=== PATIENT | male | born 1975 | race Caucasian/White ===

== ENCOUNTER 2016-11-12 18:48 | Observation (INO) | payer BC ==
[~2016-11-12] VITALS: Ht 180.3 cm; Wt 75.0 kg
[2016-11-12 18:51] VITALS: BP 138/79; PULSE 88; RESP 18; TEMP 98.3; O2SAT 99
[2016-11-12 21:00] VITALS: BP 147/90; PULSE 55; RESP 17; O2SAT 97
[2016-11-12 21:10] VITALS: O2SAT 97
[2016-11-12] MEDS ORDERED: MORPHINE SULFATE 4 MG/ML INJ IV PUSH ONE (21:15)
[2016-11-12] MEDS ORDERED: ONDANSETRON HCL 4 MG/2 ML VIAL IV PUSH ONE (21:15)
[2016-11-12] MEDS ORDERED: SODIUM CHLORIDE 0.9% FLUSH 10 ML FLUSH IVF PRN (21:15)
--- NOTE | 2016-11-12 21:15 | PD ---
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 Mayen. Patient presents with history of reaction to Coumadin in the past as well as Xeralto, who currently is not on any anticoagulation therapy. PFSH Past Medical History Diminished Hearing: No Deep Vein Thrombosis: Yes (H/O) Medical other: Yes (factor 5, celiac disease) Past Surgical History Abdominal Surgery: Yes (Abd hernia repair) Other Surgery: Yes (R foot/vein ablation right leg) Social History Alcohol Use: Yes (Beer daily) Tobacco Use: No (Quit 2007) Substance Use: Yes (Marijuana on OCC) Allergies-Medications (Allergen,Severity, Reaction): Coded Allergies: ibuprofen (Unverified Allergy, Mild, Rash, 11/12/16) penicillin G (Unverified Allergy, Mild, Unknown, 11/12/16) warfarin (Verified Allergy, Unknown, 11/12/16) Reported Meds & Prescriptions Reported Meds & Active Scripts Active No Active Prescriptions or Reported Medications Review of Systems Except as stated in HPI: all other systems reviewed are Neg General / Constitutional: No: Fever Eyes: No: Visual changes HENT: No: Headaches Cardiovascular: No: Chest Pain or Discomfort Respiratory: No: Shortness of Breath Gastrointestinal: No: Abdominal Pain Genitourinary: No: Dysuria Musculoskeletal: Positive: Limited ROM, Pain (see history present illness.) Skin: Positive Lesions (see history present illness.), No Rash Neurologic: No: Weakness Psychiatric: No: Depression Endocrine: No: Polydipsia Hematologic/Lymphatic: No: Easy Bruising Physical Exam Narrative GENERAL: Patient appears in [id number] distress. SKIN: Warm and dry. No color. Normal turgor. Patient has chronic ulcerative to the right lower leg above the foot, to the lower inner chu with no active signs of cellulitis. There is some small amount of serous drainage. Capillary refill is normal in the toes. HEAD: Atraumatic. Normocephalic. EYES: Pupils equal and round. No scleral icterus. No injection or drainage. ENT: No nasal bleeding or discharge. Mucous membranes pink and moist. Anxious clear. Airway is patent. NECK: Trachea midline. No JVD. CARDIOVASCULAR: Regular rate and rhythm. No murmurs gallops or rubs appreciated. Patient has 1+ pedal pulses bilaterally. RESPIRATORY: No accessory muscle use. Clear to auscultation. Breath sounds equal bilaterally. GASTROINTESTINAL: Abdomen soft, non-tender, nondistended. Hepatic and splenic margins not palpable. MUSCULOSKELETAL: Extremities without clubbing, cyanosis, or edema. No obvious deformities. Patient has mild swelling to the right lower extremity with fairly significant tenderness with palpation as well as positive Homans sign on the right. No weakness is appreciated. NEUROLOGICAL: Awake and alert. No obvious cranial nerve deficits. Motor grossly within normal limits. Five out of 5 muscle strength in the arms and legs. Normal speech. PSYCHIATRIC: Appropriate mood and affect; insight and judgment normal. Data Data Last Documented VS Vital Signs Date Time Temp Pulse Resp B/P (MAP) Pulse Ox O2 Delivery O2 Flow Rate FiO2 11/12/16 21:10 97 Room Air 11/12/16 21:00 55 17 11/12/16 18:51 98.3 Orders Orders Ckmb (Isoenzyme) Profile (11/12/16 21:04) Complete Blood Count With Diff (11/12/16 21:04) Comprehensive Metabolic Panel (11/12/16 21:04) Prothrombin Time / Inr (Pt) (11/12/16 21:04) Act Partial Throm Time (Ptt) (11/12/16 21:04) Chest, Single Ap (11/12/16 21:04) Ecg Monitoring (11/12/16 21:04) Iv Access Insert/Monitor (11/12/16 21:04) Oximetry (11/12/16 21:04) Sodium Chloride 0.9% Flush (Ns Flush) (11/12/16 21:15) Us Leg Venous Doppler (11/12/16 21:04) Morphine Inj (Morphine Inj) (11/12/16 21:15) Ondansetron Inj (Zofran Inj) (11/12/16 21:15) Labs Laboratory Tests Test 11/12/16 21:15 White Blood Count 7.1 TH/MM3 Red Blood Count 4.39 MIL/MM3 Hemoglobin 13.4 GM/DL Hematocrit 39.5 % Mean Corpuscular Volume 90.1 FL Mean Corpuscular Hemoglobin 30.6 PG Mean Corpuscular Hemoglobin Concent 34.0 % Red Cell Distribution Width 12.6 % Platelet Count 286 TH/MM3 Mean Platelet Volume 8.3 FL Neutrophils (%) (Auto) 60.0 % Lymphocytes (%) (Auto) 26.3 % Monocytes (%) (Auto) 8.9 % Eosinophils (%) (Auto) 3.9 % Basophils (%) (Auto) 0.9 % Neutrophils # (Auto) 4.2 TH/MM3 Lymphocytes # (Auto) 1.9 TH/MM3 Monocytes # (Auto) 0.6 TH/MM3 Eosinophils # (Auto) 0.3 TH/MM3 Basophils # (Auto) 0.1 TH/MM3 CBC Comment DIFF FINAL Differential Comment Prothrombin Time 11.9 SEC Prothromb Time International Ratio 1.1 RATIO Activated Partial Thromboplast Time 27.4 SEC Blood Urea Nitrogen 10 MG/DL Creatinine 0.98 MG/DL Random Glucose 91 MG/DL Total Protein 7.9 GM/DL Albumin 4.0 GM/DL Calcium Level 9.1 MG/DL Alkaline Phosphatase 55 U/L Aspartate Amino Transf (AST/SGOT) 17 U/L Alanine Aminotransferase (ALT/SGPT) 22 U/L Total Bilirubin 0.4 MG/DL Sodium Level 140 MEQ/L Potassium Level 3.8 MEQ/L Chloride Level 106 MEQ/L Carbon Dioxide Level 28.7 MEQ/L Anion Gap 5 MEQ/L Estimat Glomerular Filtration Rate 84 ML/MIN Total Creatine Kinase 83 U/L [facility] Medical Decision Making Medical Screen Exam Complete: Yes Emergency Medical Condition: Yes Medical Record Reviewed: Yes Differential Diagnosis Chronic right lower extremity pain. Chronic right lower extremity nonhealing wounds. Factor V disorder. Possible DVT on the right. Hypercoagulation disorder. Narrative Course Patient is in pain but medically stable at time of exam. Labs ordered including CBC, CMP, coagulation studies ordered. Chest x-ray is ordered and shows no acute process. IV access is obtained patient is given 4 mg Zofran IV as well as 4 mg morphine IV. Labs showed no significant white count. CMP is unremarkable. Coagulation studies show PT of 11.9, INR 1.1, APTT is 27.4. 2300 hrs. Ultrasound is still pending. Patient is discussed with Dr. Couch who assumes care. Final disposition will be determined by Dr. Couch. Scripts No Active Prescriptions or Reported Meds Condition: Stable Don Tyler Nov 12, 2016 21:15
[2016-11-12 21:37] LABS: AUTOMATED NEUTROPHIL # 4.2 TH/MM3 (1.8-7.7); BASOPHIL # 0.1 TH/MM3 (0-0.2); BASOPHIL % 0.9 % (0.0-2.0); EOSINOPHIL # 0.3 TH/MM3 (0-0.4); EOSINOPHIL % 3.9 % (0.0-4.0); HEMATOCRIT 39.5 % (39.0-51.0); HEMO FLAGS DIFF FINAL; LYMPH % 26.3 % (9.0-44.0); LYMPHOCYTE # 1.9 TH/MM3 (1.0-4.8); MEAN CELL VOLUME 90.1 FL (80.0-100.0); MEAN CORPUSCULAR HEMOGLOBIN 30.6 PG (27.0-34.0); MONO % 8.9 % (0.0-8.0); PLATELET COUNT 286 TH/MM3 (150-450); RED BLOOD COUNT 4.39 MIL/MM3 (4.50-5.90); RED CELL DISTRIBUTION WIDTH 12.6 % (11.6-17.2); WHITE BLOOD COUNT 7.1 TH/MM3 (4.0-11.0)
[2016-11-12 21:47] LABS: APTT (PATIENT) 27.4 SEC (24.3-30.1); INTERNATIONAL NORMALIZED RATIO 1.1 RATIO; PROTHROMBIN TIME - PATIENT 11.9 SEC (9.8-11.6)
[2016-11-12 21:52] LABS: ANION GAP 5 MEQ/L (5-15); AST (GOT) 17 U/L (15-37); BICARBONATE 28.7 MEQ/L (21.0-32.0); BLOOD UREA NITROGEN 10 MG/DL (7-18); CHLORIDE 106 MEQ/L (98-107); GLOMERULAR FILTRATION RATE 84 ML/MIN (>89); POTASSIUM 3.8 MEQ/L (3.5-5.1); SODIUM (NA) 140 MEQ/L (136-145)
[2016-11-12 21:53] LABS: ALT (GPT) 22 U/L (12-78)
[2016-11-12 21:55] LABS: ALKALINE PHOSPHATASE 55 U/L (45-117); TOTAL BILIRUBIN ADULT 0.4 MG/DL (0.2-1.0)
[2016-11-12 21:57] LABS: CREATINE KINASE 83 U/L (39-308)
--- NOTE | 2016-11-12 21:58 | RADRPT ---
EXAM DATE/TIME: 11/12/2016 21:27 [facility] COMPARISON: No previous studies available for comparison. INDICATIONS : Chest pain. MEDICAL HISTORY : DVT. SURGICAL HISTORY : None. ENCOUNTER: Initial ACUITY: 1 day PAIN SCORE: 0/10 LOCATION: Bilateral chest FINDINGS: A single view of the chest demonstrates the lungs to be symmetrically aerated without evidence of mas s, infiltrate or effusion. The cardiomediastinal contours are unremarkable. Osseous structures are intact. CONCLUSION: No evidence of acute cardiopulmonary disease. Gilberto Veras MD on November 12, 2016 at 21:56 Board Certified Radiologist. This report was verified electronically.
[2016-11-12 23:00] VITALS: BP 111/72; PULSE 48; RESP 17; O2SAT 97
--- NOTE | 2016-11-12 23:02 | RADRPT ---
EXAM DATE/TIME: 11/12/2016 22:15 [facility] COMPARISON: US LEG RIGHT VENOUS DOPPLER, April 13, 2014, 8:04. INDICATIONS : Right leg pain. MEDICAL HISTORY : Deep venous thrombosis. Celiac disease. Venous stasis ulcers. Anticoagulant therapy. Factor 5 de ficiency. SURGICAL HISTORY : Hernia repair. Right foot surgery. Right leg vein ablation. ENCOUNTER: Initial ACUITY: >1 year PAIN SCORE: 5/10 LOCATION: Right leg. TECHNIQUE: Venous ultrasound of the leg was performed from the inguinal ligament to the proximal calf. Real-jolie e, color Doppler and spectral tracing, compression and augmentation techniques were used. FINDINGS: There is chronic appearing, nonocclusive thrombosis of the right lower extremity extending from the p roximal superficial femoral vein and extending into the popliteal vein. Other venous tributaries of t he right lower extremity are patent. There are right inguinal lymph nodes that measure up to 4.4 x 2.6 x 1.2 cm. CONCLUSION: 1. New but probably nonacute thrombosis of the right superficial femoral vein and popliteal vein. 2. Right inguinal adenopathy. Gilberto Veras MD on November 12, 2016 at 22:58 Board Certified Radiologist. This report was verified electronically.
--- NOTE | 2016-11-12 23:20 | PD ---
Data Data Last Documented VS Vital Signs Date Time Temp Pulse Resp B/P (MAP) Pulse Ox O2 Delivery O2 Flow Rate FiO2 11/12/16 23:00 48 17 111/72 (85) 97 Room Air 11/12/16 18:51 98.3 Orders Orders Ckmb (Isoenzyme) Profile (11/12/16 21:04) Complete Blood Count With Diff (11/12/16 21:04) Comprehensive Metabolic Panel (11/12/16 21:04) Prothrombin Time / Inr (Pt) (11/12/16 21:04) Act Partial Throm Time (Ptt) (11/12/16 21:04) Chest, Single Ap (11/12/16 21:04) Ecg Monitoring (11/12/16 21:04) Iv Access Insert/Monitor (11/12/16 21:04) Oximetry (11/12/16 21:04) Sodium Chloride 0.9% Flush (Ns Flush) (11/12/16 21:15) Us Leg Venous Doppler (11/12/16 21:04) Morphine Inj (Morphine Inj) (11/12/16 21:15) Ondansetron Inj (Zofran Inj) (11/12/16 21:15) Enoxaparin Inj (Lovenox Inj) (11/13/16 01:15) Admit Order (Ed Use Only) (11/13/16 01:12) Consult Hematology (11/13/16 ) Labs Laboratory Tests Test 11/12/16 21:15 White Blood Count 7.1 TH/MM3 Red Blood Count 4.39 MIL/MM3 Hemoglobin 13.4 GM/DL Hematocrit 39.5 % Mean Corpuscular Volume 90.1 FL Mean Corpuscular Hemoglobin 30.6 PG Mean Corpuscular Hemoglobin Concent 34.0 % Red Cell Distribution Width 12.6 % Platelet Count 286 TH/MM3 Mean Platelet Volume 8.3 FL Neutrophils (%) (Auto) 60.0 % Lymphocytes (%) (Auto) 26.3 % Monocytes (%) (Auto) 8.9 % Eosinophils (%) (Auto) 3.9 % Basophils (%) (Auto) 0.9 % Neutrophils # (Auto) 4.2 TH/MM3 Lymphocytes # (Auto) 1.9 TH/MM3 Monocytes # (Auto) 0.6 TH/MM3 Eosinophils # (Auto) 0.3 TH/MM3 Basophils # (Auto) 0.1 TH/MM3 CBC Comment DIFF FINAL Differential Comment Prothrombin Time 11.9 SEC Prothromb Time International Ratio 1.1 RATIO Activated Partial Thromboplast Time 27.4 SEC Blood Urea Nitrogen 10 MG/DL Creatinine 0.98 MG/DL Random Glucose 91 MG/DL Total Protein 7.9 GM/DL Albumin 4.0 GM/DL Calcium Level 9.1 MG/DL Alkaline Phosphatase 55 U/L Aspartate Amino Transf (AST/SGOT) 17 U/L Alanine Aminotransferase (ALT/SGPT) 22 U/L Total Bilirubin 0.4 MG/DL Sodium Level 140 MEQ/L Potassium Level 3.8 MEQ/L Chloride Level 106 MEQ/L Carbon Dioxide Level 28.7 MEQ/L Anion Gap 5 MEQ/L Estimat Glomerular Filtration Rate 84 ML/MIN Total Creatine Kinase 83 U/L [facility] Medical Record Reviewed: Yes Supervised Visit with ROBYN: No Interpretation(s) Last Impressions Lower Extremity Ultrasound 11/12/162103 Signed Impressions: Service Date/Time: Saturday, November 12, 2016 22:15 - CONCLUSION: 1. New but probably nonacute thrombosis of the right superficial femoral vein and popliteal vein. 2. Right inguinal adenopathy. Gilberto Veras MD Chest X-Ray 11/12/162103 Signed Impressions: Service Date/Time: Saturday, November 12, 2016 21:27 - CONCLUSION: No evidence of acute cardiopulmonary disease. Gilberto Veras MD Narrative Course During the course of the patients emergency department visit, the patients history, examination, and differential diagnosis were reviewed with the patient. The patient had IV access obtained and blood work sent for analysis. The patient's case was checked out to me by Don, the physician medical records assistant. He checked the patient's case out to me at the conclusion of his shift. All of the patient's laboratory studies including his ultrasound results have been obtained. The patient has a history of a coagulation disorder with recurrent DVT. The patient has had reactions to Xarelto, and Coumadin. The patient had been reticent to starting back on another anticoagulated according to the records that were reviewed from a recent evaluation with , the patient 's farm demonstrator. The patient reports that now that he is aware that he does have a recurrent DVT of the superficial femoral vein and popliteal vein, he is agreeable with the plan to start on Lovenox as recommended by his farm demonstrator. The patient will be given his initial dose in the emergency department. A call has been placed out to the patient's farm demonstrator to discuss the patient's plan of care and follow-up. The patients laboratory studies were reviewed and remarkable for a white count of 7.1, hemoglobin 13.4, platelets 286. 8.9 monocytes, CMP is unremarkable, PT 11.9, PTT 27.4 Radiology studies were reviewed and remarkable for a chest x-ray that shows no acute cardiopulmonary disease. An ultrasound that reveals a new but probably not acute thrombosis of the right superficial femoral vein. Right inguinal adenopathy is also noted. The patient reportedly does have chronic wounds of the right lower extremity that are under the care of wound care management according to El that initially saw the patient. I spoke to the farm demonstrator aboriginal education teacher for , Dr. Redman. She recommended admission for observation with consultation with Dr. Rutherford for the morning. She was agreeable with the plan for the patient to be started on the full dose of Lovenox for anticoagulation of 1 mg/kg subcutaneously. The patients results were discussed with the patient, including the plan of care. I explained that further testing and/ or monitoring is indicated based on the patients history, examination, and/ or laboratory findings. Therefore, I recommended admission for additional evaluation. The patient expressed understanding and was agreeable with this plan. The patient was admitted to the hospital in stable condition and sent to a bed under the care of the [facility] Physician Communication Physician Communication The patient's case was also discussed with the farm demonstrator covering for Dr. Rutherford. Please see further information regarding this in the ED course. The patient's case was discussed with Dr. Kumari who did agree to admit the patient for further evaluation and treatment at this time. 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
[2016-11-13] MEDS ORDERED: ENOXAPARIN SODIUM 80 MG/0.8 ML SYRINGE SQ ONE (01:15)
--- NOTE | 2016-11-13 02:26 | HHI.HP ---
[facility] Non-Staff Admission Diagnosis right leg recurrent DVT Diagnoses: Travel History International Travel<30 Days: No Contact w/Intl Traveler <30 Da: No Traveled to Known Affected Are: No History of Present Illness History from patient, ER physician communication, and review of medical records. Patient reported that he came to the hospital because he was having his right lower extremity pain in the past few weeks. He reports that he has had history of multiple DVTs and this right lower extremity and he was afraid that this might be happening so which was why he came to hospital. He has history of factor V Leiden deficiency. He states he follows up with Dr. Rutherford. Latest notes from his general lithographic worker on EMR from October 17, 2016reviewed. He was prescribed Lovenox injections at that time for treatment of his DVTs as he has had complications with multiple anticoagulant particularly Coumadin. According to the patient, he has had skin necrosis and multiple areas most prominently at the penile area which caused significant debility and thus it was stopped. Although our hematologists had advised him from Lovenox, he stated that the pharmacy did not fill it and he also was afraid to take it and did not really want to take any blood thinners because he believes that this was the cause of his skin problems. He has had chronic stasis venous ulcers in his right lower extremity. He is mostly blaming this on anticoagulants. He also does have history of celiac disease which made him intolerable to most of the by mouth anticoagulants. He therefore did not take any anticoagulation for the past 6 months. He states that he had follow-up appointments with the general lithographic worker on November 07, 2016. There was no note from that date for review on EMR. Apparently he reports that the general lithographic worker is aware that he is not taking his Lovenox and that was okay. I have told patient that I doubt that this would be the case. Regarding his chronic venous stasis ulcers on the lower extremity, he has been following up with the wound care doctor in [place]. Again, he has not seen these doctors for the past 1-1/2 months. But he is very knowledgeable regarding the wound care and has multiple full dose of his wound showing different stages of healing with better results. He plans to follow-up with them in about another month when he is eligible for medical marijuana prescription because he is having severe pains every time he undergo the wound care treatments. Apart from the above increased pain in the right lower extremity with not being on anticoagulants for 6 months, patient denies any other symptoms such as nausea vomiting/diarrhea/urinary burning or pain on urination. He denies any hematemesis/hematochezia/melena/hematuria. Denies any chest pain/palpitations/shortness of breath/focal weakness. He does report that he at times would have palpitations when he gets anxiety but this is not a daily thing. Denies fever. Denies any purulent discharge from his chronic wounds. 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 Past Surgical History Rebuilt rt canal Colposcopy in 2016 Vein Ablation in 2011 Hernia repair in 1988 right calceneous removed- had metals and pins and screws - 2003; dvt started then first Allergies: Coded Allergies: ibuprofen (Unverified Allergy, Mild, Rash, 11/12/16) penicillin G (Unverified Allergy, Mild, Unknown, 11/12/16) warfarin (Verified Allergy, Unknown, 11/12/16) Family History factor v in grandfather- similar ulcers in him; also had dm Social History drink wine once in a while no smoking - quit at least 8 yrs ago but used to smoke but 1.5 pack a day for about 7 years no iv drugs, no cocaine, takes medical marijuana Physical Exam Vital Signs Vital Signs Date Time Temp Pulse Resp B/P (MAP) Pulse Ox O2 Delivery O2 Flow Rate FiO2 11/12/16 23:00 48 17 111/72 (85) 97 Room Air 11/12/16 21:10 97 Room Air 11/12/16 21:00 55 17 147/90 (109) 97 Room Air 11/12/16 20:43 17 11/12/16 18:51 98.3 88 18 138/79 (98) 99 Room Air Physical Exam Is is normal as is or rather denies is GENERAL: This is a well-nourished, well- developed patient, in no apparent distress. SKIN: Right lower extremity chronic venous stasis ulcer wound was wrapped. Patient did not want me to remove it for examination as it is extremely painful. However he did have pictures of the wound which he showed. No drainage. HEAD: Atraumatic. Normocephalic. No temporal or scalp tenderness. EYES: No scleral icterus. No injection or drainage. ENT: Nose without bleeding, purulent drainage or septal hematoma.. Airway patent. NECK: Trachea midline. No JVD CARDIOVASCULAR: Regular rate and rhythm without murmurs, gallops, or rubs. RESPIRATORY: Clear to auscultation. Breath sounds equal bilaterally. No wheezes , rales, or rhonchi. GASTROINTESTINAL: Abdomen soft, non-tender, nondistended. No guarding. MUSCULOSKELETAL: Extremities without clubbing, cyanosis, or edema. No calf tenderness. NEUROLOGICAL: Awake and alert.Motor and sensory grossly within normal limits. Normal speech. Laboratory Laboratory Tests Test 11/12/16 21:15 White Blood Count 7.1 Red Blood Count 4.39 Hemoglobin 13.4 Hematocrit 39.5 Mean Corpuscular Volume 90.1 Mean Corpuscular Hemoglobin 30.6 Mean Corpuscular Hemoglobin Concent 34.0 Red Cell Distribution Width 12.6 Platelet Count 286 Mean Platelet Volume 8.3 Neutrophils (%) (Auto) 60.0 Lymphocytes (%) (Auto) 26.3 Monocytes (%) (Auto) 8.9 Eosinophils (%) (Auto) 3.9 Basophils (%) (Auto) 0.9 Neutrophils # (Auto) 4.2 Lymphocytes # (Auto) 1.9 Monocytes # (Auto) 0.6 Eosinophils # (Auto) 0.3 Basophils # (Auto) 0.1 CBC Comment DIFF FINAL Differential Comment Prothrombin Time 11.9 Prothromb Time International Ratio 1.1 Activated Partial Thromboplast Time 27.4 Blood Urea Nitrogen 10 Creatinine 0.98 Random Glucose 91 Total Protein 7.9 Albumin 4.0 Calcium Level 9.1 Alkaline Phosphatase 55 Aspartate Amino Transf (AST/SGOT) 17 Alanine Aminotransferase (ALT/SGPT) 22 Total Bilirubin 0.4 Sodium Level 140 Potassium Level 3.8 Chloride Level 106 Carbon Dioxide Level 28.7 Anion Gap 5 Estimat Glomerular Filtration Rate 84 Total Creatine Kinase 83 Result Diagram: 11/12/16211411/12/162114 Imaging Last 48 hours Impressions Lower Extremity Ultrasound 11/12/162103 Signed Impressions: Service Date/Time: Saturday, November 12, 2016 22:15 - CONCLUSION: 1. New but probably nonacute thrombosis of the right superficial femoral vein and popliteal vein. 2. Right inguinal adenopathy. Gilberto Veras MD Chest X-Ray 11/12/162103 Signed Impressions: Service Date/Time: Saturday, November 12, 2016 21:27 - CONCLUSION: No evidence of acute cardiopulmonary disease. Gilberto Veras MD Caprini VTE Risk Assessment Caprini VTE Risk Assessment: Mod/High Risk (score >= 2) Caprini Risk Assessment Model Point Value = 1 Point Value = 2 Point Value = 3 Point Value = 5 Age 41-60 Minor surgery BMI > 25 kg/m2 Swollen legs Varicose veins or History of unexplained or recurrent spontaneous Oral contraceptives or hormone replacement Sepsis (< 1 month) Serious lung disease, including pneumonia (< 1 month) Abnormal pulmonary function Acute myocardial infarction Congestive heart failure (< 1 month) History of inflammatory bowel disease Medical patient at bed rest Age 61-74 Arthroscopic surgery Major open surgery (> 45 min) Laparoscopic surgery (> 45 min) Malignancy Confined to bed (> 72 hours) Immobilizing plaster cast Central venous access Age >= 75 History of VTE Family history of VTE Factor V Leiden Prothrombin [id number] Lupus anticoagulant Anticardiolipin antibodies Elevated serum homocysteine Heparin-induced thrombocytopenia Other congenital or acquired thrombophilia Stroke (< 1 month) Elective arthroplasty Hip, pelvis, or leg fracture Acute spinal cord injury (< 1 month) Prophylaxis Regimen Total Risk Factor Score Risk Level Prophylaxis Regimen 0-1 Low Early ambulation 2 Moderate Order ONE of the following: *Sequential Compression Device (SCD) *Heparin 5000 units SQ BID 3-4 Higher Order ONE of the following medications: *Heparin 5000 units SQ TID *Enoxaparin/Lovenox 40 mg SQ daily (WT < 150 kg, CrCl > 30 mL/min) *Enoxaparin/Lovenox 30 mg SQ daily (WT < 150 kg, CrCl > 10-29 mL/min) *Enoxaparin/Lovenox 30 mg SQ BID (WT < 150 kg, CrCl > 30 mL/min) AND/OR *Sequential Compression Device (SCD) 5 or more Highest Order ONE of the following medications: *Heparin 5000 units SQ TID (Preferred with Epidurals) *Enoxaparin/Lovenox 40 mg SQ daily (WT < 150 kg, CrCl > 30 mL/min) *Enoxaparin/Lovenox 30 mg SQ daily (WT < 150 kg, CrCl > 10-29 mL/min) *Enoxaparin/Lovenox 30 mg SQ BID (WT < 150 kg, CrCl > 30 mL/min) AND *Sequential Compression Device (SCD) Assessment and Plan Assessment and Plan Impression: Acute on chronic right lower extremity DVT Factor V Leiden Medications noncompliance History of adverse reactions to anticoagulants per patient. Partly from celiac disease with malabsorption, or skin ulcerations from possibly Coumadin. Chronic venous stasis ulcer of right lower extremity. Wound care follow-up as an outpatient. Plan: lovenox 1mg / kg q12hrs Patient is explained in detail that his skin stasis ulcers are most likely secondary to venous stasis and likely from venous insufficiency which may be resulting from the recurrent occlusive process itself. He is therefore advised to take anticoagulants lifelong. He is agreeable with taking Lovenox for now. He would much rather discuss with his general lithographic worker a candidate for alternative injectable anticoagulants. His case was discussed with general lithographic worker patrol conductor by ER physician. This was the covering general lithographic worker Who advised patient to be observed overnight for reactions regarding possible reactions to Lovenox and also for her His general lithographic worker to see him in the morning. DVT prophylaxis- on Lovenox. Discussed Condition With Patient, ER physician, patient's nurse Tex Kumari MD Nov 13, 2016 02:26
[2016-11-13] MEDS ORDERED: MORPHINE SULFATE 4 MG/ML INJ IV PUSH PRN (02:45)
[2016-11-13] MEDS ORDERED: NALOXONE HCL 0.4 MG/ML AMP IV PUSH PRN (02:45)
[2016-11-13] MEDS ORDERED: SODIUM CHLORIDE 0.9% FLUSH 10 ML FLUSH IV FLUSH PRN (02:45)
[2016-11-13 05:47] VITALS: BP 113/64; PULSE 63; RESP 16; TEMP 97.9; O2SAT 100
[2016-11-13 06:21] VITALS: PULSE 48
[2016-11-13 07:08] VITALS: PULSE 45
[2016-11-13 07:39] VITALS: BP 121/64; PULSE 51; RESP 19; TEMP 97.7; O2SAT 100
[2016-11-13] MEDS ORDERED: SODIUM CHLORIDE 0.9% FLUSH 10 ML FLUSH IV FLUSH SCH (09:00)
--- NOTE | 2016-11-13 10:14 | MB ---
cc: DR. ADWOA REYES RUBY ANNE E. M.D. DATE OF 1975 DATE OF SERVICE 11/13/[address] Reyes CHIEF COMPLAINT Dr. Reyes requested consultation for Mr. Obrien regarding recurrent right lower extremity deep vein thromboses. HISTORY OF PRESENT ILLNESS Mr. Obrien is a 41-year-old man, well-known patient in the outpatient setting. He has a history of thrombophlebitis of the left leg. He has had recurrent deep vein thromboses of the right leg having had the first after a heel injury in 2003. His course was further complicated by recurrent skin painful ulcers. He was given contemplating right lower extremity amputation because of the pain. He was subsequently diagnosed with celiac disease and has remained gluten-free. He was seen in clinic initially on October 06, 2016. We discussed the differential of his leg lesions to be stasis ulcer versus livedoid vasculopathy. Significant pain argues against regular stasis ulcers. He was offered low-molecular weight heparin, however he did not take this. He was seen in followup and understood the consequences of his refusal. He feels that his leg ulcers were actually getting better since he did not take the anticoagulant therapy. He was pleased with his progress. He has not yet coordinated skin biopsy to determine the nature of these lesions. He has deferred anticoagulant therapy. We have explored thrombophilia risk factors. He has Factor V Leiden, heterozygosity and a questionable protein S deficiency. We are in the process of repeating the protein S activity level to determine if this is acquired protein S deficiency versus congenital. He noticed increasing swelling in the right leg. He denies any shortness of breath. Because of the increasing swelling in the right leg and pain, he presented to the emergency room. Doppler ultrasound on 11/12 shows a new, probably non-acute thrombosis of the right superficial femoral vein and popliteal vein. He has right inguinal adenopathy. He was given a dose of low-molecular weight heparin last night and reports that his swelling has decreased. Hematology/Oncology is consulted because of the progression of his right lower extremity deep vein thromboses. PAST MEDICAL HISTORY 1. Celiac disease. 1. Factor V Leiden heterozygosity, questionable acquired protein S deficiency. 2. Recurrent left lower extremity thrombophlebitis. 3. Recurrent right lower extremity deep vein thromboses. 4. 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 PAST SURGICAL HISTORY 1. Colposcopy. 2. Vein ablation. 3. Hernia repair. 4. Right carpal tunnel FAMILY HISTORY Mother at age 60 of lung cancer. Father is alive. SOCIAL HISTORY He is . He quit smoking 10 years ago. He drinks occasionally. He is using cannabis. PHYSICAL EXAMINATION VITAL SIGNS: Temperature 97.7, heart rate 51, respiratory rate 19, blood pressure 121/64, saturation 100%. GENERAL: Mr. Obrien is a well-developed slender man who looks more comfortable. HEENT: His pupils are round, reactive to light and accommodation. Oropharynx is clear. NECK: Supple with no adenopathy. LUNGS: Clear to auscultation. CARDIOVASCULAR: Exam reveals a normal rate and rhythm. ABDOMEN: Benign. LOWER EXTREMITIES: The right lower extremities is larger than the left. There is trace edema of the right lower extremity. The lower extremity ulcerations are dressed. The dressing is dry. LABORATORY DATA Comprehensive metabolic panel and CBC are normal. ASSESSMENT AND PLAN Mr. 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 He is most symptomatic from ulcerations of his lower extremities, pending diagnosis. He is pending a biopsy of the skin to determine if this is a plain stasis ulcer versus livedoid vasculopathy. He was admitted because of new right lower leg swelling and is found to have progression of his deep vein thromboses since he was off anticoagulant therapy. I discussed with Mr. Obrien his clot. He is agreeable to continue of low-molecular weight heparin/Lovenox. We should be able to dose him once daily. He has adamantly against Coumadin and new oral anticoagulants claiming that they make his ulcerations and pain symptoms worsen. It is not known how this mechanism of action occurs. Nevertheless, he is agreeable to one type of anticoagulant. We discussed that he will need treatment for the acute clot or acute progression of the clot for 3-6 months time. It is feasible to give him low-molecular weight heparin at that time. He is concerned about the changes in his insurance. We can deal with that as the time comes. In the meantime I recommend that he be discharged on Lovenox 100 mg once daily. He should be able to do once daily dosing. I could monitor anti-Factor X-a level and clinically his response as an outpatient. Plan to see him back in a week's time. He is well-known to my clinic at [place]. We will monitor the response to low-molecular weight heparin of his ulcers. He is okay for discharge and followup in the clinic on an outpatient basis from the hematology/oncology standpoint. Dee Rutherford MD RAD/SSB /9:19 AM /9:54 AM
[2016-11-13] MEDS ORDERED: ENOX100P SQ (10:52)
--- NOTE | 2016-11-13 10:59 | HHI.PR ---
Subjective Remarks Follow-up for right lower extremity acute on chronic DVT. The patient is feeling much better today. He states that he has been off of anticoagulation recently and yesterday his right lower extremity was much more swollen and uncomfortable than usual. Normally he is able to relieve the swelling when he elevates his leg, but he wasn't yesterday. He states the swelling is much better today. He states he is currently without pain. He states he's been following with outpatient wound care for his ulcers. He states he is familiar with giving himself Lovenox shots and feels comfortable doing so. He has been controlling his pain with cannabis and plans to continue to follow with for continued medical marijuana. Objective Vitals Vital Signs Date Time Temp Pulse Resp B/P (MAP) Pulse Ox O2 Delivery O2 Flow Rate FiO2 11/13/16 07:39 97.7 51 19 121/64 (83) 100 11/13/16 07:08 45 11/13/16 06:21 48 11/13/16 05:47 97.9 63 16 113/64 (80) 100 11/12/16 23:00 48 17 111/72 (85) 97 Room Air 11/12/16 21:10 97 Room Air 11/12/16 21:00 55 17 147/90 (109) 97 Room Air 11/12/16 20:43 17 11/12/16 18:51 98.3 88 18 138/79 (98) 99 Room Air Result Diagram: 11/12/16211411/12/162114 Imaging Last Impressions Lower Extremity Ultrasound 11/12/162103 Signed Impressions: Service Date/Time: Saturday, November 12, 2016 22:15 - CONCLUSION: 1. New but probably nonacute thrombosis of the right superficial femoral vein and popliteal vein. 2. Right inguinal adenopathy. Gilberto Veras MD Chest X-Ray 11/12/162103 Signed Impressions: Service Date/Time: Saturday, November 12, 2016 21:27 - CONCLUSION: No evidence of acute cardiopulmonary disease. Gilberto Veras MD Objective Remarks GENERAL: Well-developed well-nourished. In no acute distress. SKIN: Warm and dry. Right ankle ulceration with clean dressing. HEENT: Normocephalic. Pupils equal and round. Mucous membranes pink and moist. CARDIOVASCULAR: Regular rate and rhythm. No murmur appreciated. RESPIRATORY: No accessory muscle use. Clear to auscultation. Breath sounds equal bilaterally. GASTROINTESTINAL: Abdomen soft, non-tender, nondistended. Bowel sounds x4. MUSCULOSKELETAL: 1+ pitting edema right lower extremity with distended superficial veins. Left lower extremity unremarkable. NEUROLOGICAL: Awake and alert. No focal neurological deficits. Moves upper and lower extremities spontaneously. Normal speech. PSYCHIATRIC: Appropriate mood and affect; insight and judgment normal. A/P Assessment and Plan 41-year-old male with a past medical history of recurrent DVT who presented for right lower extremity pain and swelling Acute on chronic right lower extremity DVT: Secondary to factor V Leyden deficiency. -Patient's stores naval consulted, recommended once daily Lovenox injections and outpatient follow-up Venous stasis ulcer right lower extremity: Secondary to the above. -Continue outpatient wound care -Currently pain-free. Continue home regimen and pain management follow-up Discharge Planning Discharge home for outpatient follow-up with prescription for Lovenox Raphael Mcfarlane Nov 13, 2016 10:59
[2016-11-13 11:12] VITALS: BP 125/62; PULSE 57; RESP 19; TEMP 99.5; O2SAT 99
[2016-11-13] MEDS ORDERED: ENOXAPARIN SODIUM 100 MG/ML SYRINGE SQ SCH (13:00)
[2016-11-13] MEDS ORDERED: ENOXAPARIN SODIUM 80 MG/0.8 ML SYRINGE SQ SCH (13:00)
== END 2016-11-14 02:50 | disposition home or self-care (01) ==
LOC: NEPC 18:48 → NEDA 11-13 01:15 → NEPFCDU 11-13 04:01
PROVIDERS: ADMIT Hospitalist; ATTEND Hospitalist
DX: I82.411 Acute embolism and thrombosis of right femoral vein (principal); I82.501 Chronic embolism and thrombosis of unspecified deep veins of right lower extremity; I83.019 Varicose veins of right lower extremity with ulcer of unspecified site; I87.2 Venous insufficiency (chronic) (peripheral); L97.919 Non-pressure chronic ulcer of unspecified part of right lower leg with unspecified severity; D68.2 Hereditary deficiency of other clotting factors; D68.51 Activated protein C resistance; F41.9 Anxiety disorder, unspecified; F12.90 Cannabis use, unspecified, uncomplicated; K90.0 Celiac disease; Z87.891 Personal history of nicotine dependence; Z91.14 Patient's other noncompliance with medication regimen
CPT/HCPCS: 71010; 80053; 82550; 85025; 85610; 85730; 93971; 96372; 96374; 96375; 96376; 99285; G0378; J1650; J2270; J2405